=== PATIENT | female | born 1955 | race Caucasian/White ===

== ENCOUNTER → 2020-10-31 | Outpatient (CLI) | payer MEDICARE, OTHER | LOC: CARD 13:30 | PROVIDERS: ATTEND Family Medicine | DX: I08.0 Rheumatic disorders of both mitral and aortic valves (principal) | CPT/HCPCS: 93005; 93306 ==

== ENCOUNTER → 2021-02-04 | Outpatient (CLI) | payer MEDICARE, OTHER ==
[~2021-02-04] MED LIST: ASCO250T16 PO; ASPI-1238 PO; ASPIRIN 325 MG (5 GR) TABLET ONE; ATOR20TA66 PO; CALC-308 PO; CATHETER FLUSH 10 ML SYR IV PRN; CLOP75TA28 PO; CLOPIDOGREL 300 MG (PLAVIX) TABLET PO ONE; COLE625T9 PO; EPTIFIBATIDE BOLUS 10 ML IV ONE; HEParin (CATH LAB) 2,000 ML IV ONE; HEParin 1000 UNIT/ML (10ML VIAL) FOR BOLUS ONE; LIDOCAINE 1% INJ 20 ML 20 ML VIAL ONE; METO-351 PO; MIDAZOLAM 5 MG/5 ML (VERSED) VIAL ONE; NF-VITD400 PO; NITRO DRIP 25000 MCG/D5W 250 ML IV ONE; NS IV 1000 ML 1,000 ML ONE; OMEG1CAP24 PO; TRZ50T PO; VERAPAMIL 5 MG/2 ML (CALAN) VIAL IV ONE; VITA40TA PO; fentaNYL INJ 100 MCG/2 ML AMP ONE
[2021-02-04 09:00] VITALS: BP 128/66
[2021-02-04 10:56] VITALS: BP 128/66
--- NOTE | 2021-02-04 10:56 | Cardiology Stress Test Report ---
Stress Test Report Date of Procedure/Referring: Date of Procedure: Feb 04, 2021 PCP Charlie Patton MD Admitting Physician Bobbi Sanchez DO Indications: CP Baseline Heart Rate: 71 Baseline Blood Pressure: Blood Pressure Systolic: 128 Blood Pressure Diastolic: 66 Vital Signs Date Time Temp Pulse Resp B/P (MAP) Pulse Ox O2 Delivery O2 Flow Rate FiO2 02/04/21 09:00 73 14 128/66 (86) 98 Room Air Baseline Vital Signs Vital Signs Date Time Temp Pulse Resp B/P (MAP) Pulse Ox O2 Delivery O2 Flow Rate FiO2 02/04/21 09:00 73 14 128/66 (86) 98 Room Air Baseline EKG: Baseline EKG: NSR Summary: After explaining the procedure and details to the patient, she signed the consent and was brought to the stress nuclear laboratory. Patient exercised on standard Chao protocol, EKG, heart rate and blood pressure were monitored continuously, resting and stress doses of radio tracer were injected, imaging was acquired and reviewed in the short axis, horizontal long axis and vertical long axis views Patient was able to exercise for a total of 3 minutes on Chao protocol, METs 4.6 Maximum heart rate 146 Maximum blood pressure 181/85 Stress EKG, Minimal nondiagnostic changes Recovery EKG, Return to baseline TID: 1.31 SSS: 16 SDS: 14 EF: 57 Conclusion: 1. Poor exercise tolerance for 3 minutes on standard Chao protocol, 4.6 METS achieving 95% of maximum expected heart rate 2. Hypertensive response to exercise with peak blood pressure 181/85 return to baseline during recovery 3. EKG changes noted during exercise with [address] depression in lead II, III and aVF V4 and V5 persisted late in recovery 4. Exercise-induced frequent PVCs and ventricular couplets resolved in recovery 5. Reversible ischemia involving the mid to apical anterior wall and anterolateral wall and anterior septum and apex 6. Stress induced transient ischemic dilatation with TID value 1.31 7. Normal left ventricular size, EF 57% CHARLIE PATTON MD Feb 04, 2021 10:56
== END ==
LOC: CARD 08:00
PROVIDERS: ATTEND Internal Medicine Cardiovascular Disease
DX: I25.10 Atherosclerotic heart disease of native coronary artery without angina pectoris (principal); I10 Essential (primary) hypertension
CPT/HCPCS: 78452; 93017; A9502

== ENCOUNTER 2021-02-06 13:00 | Outpatient (CLI) | payer MEDICARE, OTHER ==
[~2021-02-06] VITALS: Ht 168.9 cm; Wt 62.4 kg
[2021-02-06] VITALS (12 sets, daily range): BP systolic 96–143; BP diastolic 49–93
--- NOTE | 2021-02-06 11:22 | Diagnostic Imaging Report ---
INDICATION: ABNORMAL STRESS TEST. TECHNIQUE: Single view chest 1:07 AM. CORRELATION STUDY: None FINDINGS: The heart size, mediastinal configuration and pulmonary vascularity are within normal limits. The lungs are clear with no consolidating infiltrate. There is no significant effusion or pneumothorax. Mild rightward curvature lower thoracic spine. IMPRESSION: 1. Negative for acute abnormality of the chest. Dictated by: Dictated on workstation # [id number]
[2021-02-06 11:29] LABS: HEMATOCRIT 42 % (35-52); HEMOGLOBIN 14.4 g/dL (11.5-16.0); MEAN CORPUSCULAR HEMOGLOBIN 31 pg (25-34); MEAN CORPUSCULAR HGB CONC 34 g/dL (32-36); MEAN CORPUSCULAR VOLUME 92 fL (80-99); MEAN PLATELET VOLUME 8.8 fL (9.0-12.2); PLATELET COUNT 259 10^3/uL (130-400); WHITE BLOOD COUNT 5.3 10^3/uL (4.3-11.0)
[2021-02-06 11:39] LABS: PROTHROMBIN TIME PATIENT 13.7 SEC (12.2-14.7)
[2021-02-06 11:49] LABS: ALANINE AMINOTRANSFERASE 16 U/L (0-55); ALBUMIN 4.5 GM/DL (3.2-4.5); ALKALINE PHOSPHATASE 68 U/L (40-136); BILIRUBIN,TOTAL 0.9 MG/DL (0.1-1.0); BUN/CREATININE RATIO 15; CALCIUM 9.3 MG/DL (8.5-10.1); CARBON DIOXIDE 24 MMOL/L (21-32); CHLORIDE 105 MMOL/L (98-107); CHOLESTEROL 198 MG/DL (< 200); CREATININE SERUM 0.82 MG/DL (0.60-1.30); GFR ESTIMATED > 60; GLUCOSE 92 MG/DL (70-105); HDL CHOLESTEROL 71 MG/DL (40-60); POTASSIUM 3.7 MMOL/L (3.6-5.0); SODIUM 139 MMOL/L (135-145); TOTAL PROTEIN 7.1 GM/DL (6.4-8.2); TRIGLYCERIDES 85 MG/DL (<150); VLDL CHOLESTEROL 17 MG/DL (5-40)
--- NOTE | 2021-02-06 12:48 | Conscious Sedation/ASA ---
Conscious Sedation Pre-Proced Time 12:47 ASA Score 3 For ASA 3 and 4: Consider anesthesia and medical clearance. Also, for patients with a history of failed moderate sedation consider anesthesia. Airway Lungs Heart ASA score ASA 1: a normal healthy patient ASA 2: a patient with a mild systemic disease (mid diabetes, controlled hypertension, obesity x ASA 3: a patient with a severe systemic disease that limits activity (angina, COPD, prior Myocardial infarction) ASA 4: a patient with an incapacitating disease that is a constant threat to life (CHF, renal failure) ASA 5: a moribund patient not expected to survive 24 hrs. (ruptured aneurysm) ASA 6: a declared brain- patient whose organs are being harvested. For emergent operations, add the letter E after the classification Mallampati Classification Grade 3 Sedation Plan Analgesia, Amnesia, Plan communicated to team members, Discussed options with patient/fam, Discussed risks with patient/fam The patient is an appropriate candidate to undergo the planned procedure, sedation, and anesthesia. The patient immediately re-assessed prior to indication. CHARLIE CARRENO MD Feb 06, 2021 12:48
--- NOTE | 2021-02-06 12:52 | Cardiac Cath Report ---
Cardiac Cath Report Physician (s)/Resident Surgeon (s) Physician CHARLIE CARRENO MD Pre-Procedure Diagnosis Pre-Procedure Diagnosis: Chest pain, coronary artery disease Post-Procedure Note Procedure Start Date: Feb 06, 2021 Name of Procedure: Left heart catheterization Stenting to the LAD Findings/Procedure Note PROCEDURE NOTE: 65-year-old lady with recurrent chest pain, had an abnormal stress test suggestive of ischemia in the anterior wall scheduled for cardiac catheterization. After explaining the procedure to the patient, all pros and cons were explained, all questions were answered. The patient signed the consent and then she was placed on the cardiac catheterization laboratory. Groin was prepped SL fashion local anesthesia was used. Sheath placed in the right radial artery, Jenkinjones catheter advanced to the left ventricular cavity, pressure was measured, pullback LV to aorta, intubated the right and left coronary system and angiogram was done. Patient was noted to have subtotal occlusion of the proximal LAD, given a total of 6000 units of heparin, double bolus Integrilin, EBU 3.5 guide was advanced to the left coronary system then whisper extra-support wire was advanced and parked into the distal LAD. Predilatation with 3 x 20 balloon then deployment of Angela 3 x 18 mm expanded to 3.6 mm with excellent results. At the end of the procedure the sheath was removed. Vascular band was used. FINDINGS: Hemodynamics LV 84/7, end-diastolic pressure of seven Aorta 75/41 mean of 55 ANATOMY: Left Main is free of obstructive disease Left Anterior Descending is subtotally occluded proximally, successful angioplasty and stenting using Angela 3 x 18 mm expanded to 3.5 mm with excellent results Left Circumflex is moderate to large in size with no obstructive disease Right Coronary Artery is moderate in size with no obstructive disease LV Gram was not done, pressure was measured CONCLUSION: 1. Subtotal occlusion in the proximal LAD, successful angioplasty and stenting using Angela 3 x 18 mm expanded to 3.6 mm with excellent results 2. Otherwise mild coronary artery disease nonobstructive disease 3. Patient was borderline hypotensive throughout the procedure DISCUSSION AND RECOMMENDATION: Patient was started on aspirin and Plavix, Lipitor 20 mg daily and will continue monitoring Anesthesia Type: Conscious Sedation Estimated blood loss (mL): 15 ml Contrast Amount: 86 ml Total Radiation Dose: 281 mGy Post-Procedure Diagnosis Post-operative diagnosis: Chest pain Coronary artery disease Hypertension Hyperlipidemia CHARLIE CARRENO MD Feb 06, 2021 12:52
[~2021-02-06 13:00] MED LIST changes: -ASPI-1238 PO; -ASPIRIN 325 MG (5 GR) TABLET ONE; -ATOR20TA66 PO; -CATHETER FLUSH 10 ML SYR IV PRN; -CLOP75TA28 PO; -CLOPIDOGREL 300 MG (PLAVIX) TABLET PO ONE; -EPTIFIBATIDE BOLUS 10 ML IV ONE; -HEParin (CATH LAB) 2,000 ML IV ONE; -HEParin 1000 UNIT/ML (10ML VIAL) FOR BOLUS ONE; -LIDOCAINE 1% INJ 20 ML 20 ML VIAL ONE; -MIDAZOLAM 5 MG/5 ML (VERSED) VIAL ONE; -NITRO DRIP 25000 MCG/D5W 250 ML IV ONE; +NS IV 1000 ML 1,000 ML IV SCH; -NS IV 1000 ML 1,000 ML ONE; -VERAPAMIL 5 MG/2 ML (CALAN) VIAL IV ONE; -fentaNYL INJ 100 MCG/2 ML AMP ONE
[2021-02-06] MEDS: NS IV 1000 ML 1,000 ML IV SCH ×2 (13:23→14:55)
[2021-02-06] MEDS ORDERED: CATHETER FLUSH 10 ML SYR IV PRN (15:30)
[2021-02-07] VITALS: BP 107/64
[2021-02-07 03:57] VITALS: BP 99/62
[2021-02-07] MEDS ORDERED: CLOP75TA28 PO (06:46)
[2021-02-07] MEDS ORDERED: ATOR20TA66 PO (06:46)
[2021-02-07] MEDS ORDERED: ASPI-1238 PO (06:46)
--- NOTE | 2021-02-07 06:47 | Discharge Inst-Post CATH ---
Discharge Inst-CATH/EP Problems Reviewed?: Yes Post Cardiac Cath/EP D/C Inst Follow Up/Plan Appointment with Dr Patton in 2-4 weeks <b>CARDIAC CATH/EP PROCEDURE DISCHARGE INSTRUCTIONS</b> ACTIVITY * Go Home directly and rest. * Limit activity of the leg (or wrist if it was used) for 7 days including aerobics, swimming, jogging, bicycling, etc. * Restrict stair-climbing for 7 days if possible, if not, climb up with your non-cath leg, then bring together on the same step. * Avoid lifting, pushing, pulling or excessive movement of the affected extremity for 7 days. * Customary sexual activity may be resumed after 2 days-use caution not to use a position that strains or causes pain to the affected extremity. * No driving for 24 hours. * NO SMOKING. * Avoid straining for bowel movements for 7 days. * Gentle walking on level ground is allowed. * Returning to work will depend on the type of procedure and the results. Your doctor will discuss this with you. CALL YOUR DOCTOR FOR ANY OF THE FOLLOWING: *If bleeding from the puncture site occurs- Apply gentle pressure to site with clean cloth and call your doctor or EMS. * If a knot or lump forms under the skin, increases in size, or causes pain. * If bruising appears to be worsening or moving further down your leg instead of disappearing. * Temperature above 101 F. CARE OF YOUR GROIN INCISION; * Bruising or purple discoloration of the skin near the puncture site is common. * You may shower only, no bathtub bathing for 5 days. Be careful to avoid slipping as your leg may feel stiff. * If a closure device was used on your femoral artery, please see the attached guide regarding care of the device and your leg. * Leave dressing on FOR 24 hours. CARE OF YOUR WRIST INCISION; * Bruising or purple discoloration of the skin near the puncture site is common. * You may shower. * DO NOT submerge wrist. * Leave dressing on FOR 24 hours. CHARLIE PATTON MD Feb 07, 2021 06:47
[2021-02-07 07:50] VITALS: BP 102/51
[2021-02-07] MEDS: NS IV 1000 ML 1,000 ML IV SCH (08:02)
[2021-02-07] MEDS ORDERED: CLOPIDOGREL 75 MG (PLAVIX) TABLET PO SCH (09:00)
[2021-02-07] MEDS ORDERED: ASPIRIN E.C. 81 MG (ECOTRIN) TAB PO SCH (09:00)
--- NOTE | 2021-02-07 09:48 | Cardiology Progress Note ---
Subjective Date Seen by Provider: Feb 07, 2021 Time Seen by Provider: 09:46 Subjective/Events-last exam Patient was seen and evaluated, has been doing well. No new complaint Review of Systems General: No Chills, No Night Sweats, No Fatigue, No Malaise, No Appetite, No Other HEENT: No Head Aches, No Visual Changes, No Eye Pain, No Ear Pain, No Dysphasia, No Sinus Congestion, No Post Nasal Drip, No Sore Throat, No Other Pulmonary: No Dyspnea, No Cough, No Pleuritic Chest Pain, No Other Cardiovascular: No: Chest Pain, Palpitations, Orthopnea, Paroxysmal Noc. Dyspnea, Edema, Lt Headedness, Other Objective-Cardiology Exam Last Set of Vital Signs Vital Signs 02/07/21 02/07/21 07:50 08:03 Temp 37.0 Pulse 56 Resp 18 B/P (MAP) 102/51 (68) Pulse Ox 94 O2 Delivery Room Air General: Alert, Oriented X3, Cooperative HEENT: Atraumatic, PERRLA Neck: Supple, No JVD, No Thyromegaly Lungs: Clear to Auscultation, Normal Air Movement Heart: Regular Rate, Normal S1, Normal S2, No Murmurs Abdomen: Normal Bowel Sounds, Soft, No Tenderness, No Hepatosplenomegaly, No Masses Extremities: No Clubbing, No Cyanosis, No Edema, Normal Pulses, No Tenderness/Swelling Skin: No Rashes, No Breakdown, No Significant Lesion Neuro: Normal Gait, Normal Speech, Strength at 5/5 X4 Ext, Normal Tone, Sensation Intact Psych/Mental Status: Mental Status NL, Mood NL Results Lab Laboratory Tests 02/06/21 11:07 A/P-Cardiology Admission Diagnosis Coronary artery disease Hypertension Hyperlipidemia Assessment/Plan Coronary artery disease, status post intervention as described below. 1. Subtotal occlusion in the proximal LAD, successful angioplasty and stenting using Angela 3 x 18 mm expanded to 3.6 mm with excellent results 2. Otherwise mild coronary artery disease nonobstructive disease 3. Patient was borderline hypotensive throughout the procedure Hypertension, monitor blood pressure, continue current medication Hyperlipidemia, started on statin. We discussed the management plan, educated about compliance with medication especially aspirin Plavix, arrange for follow-up as an outpatient CHARLIE CARRENO MD Feb 07, 2021 09:48
== END 2021-02-07 10:29 | disposition home or self-care (01) ==
LOC: CATH 13:00 → CSD 13:05 → CATH 02-07 10:29
PROVIDERS: ATTEND Internal Medicine Cardiovascular Disease
DX: R94.39 Abnormal result of other cardiovascular function study (principal); R07.9 Chest pain, unspecified
CPT/HCPCS: 36415; 71045; 80053; 80061; 85027; 85610; 85730; 87081; 93458

== ENCOUNTER → 2021-03-13 | Outpatient (CLI) | payer MEDICARE, OTHER ==
[~2021-03-13] VITALS: Ht 167 cm; Wt 61.0 kg
[~2021-03-13] MED LIST changes: +ASPI-1238 PO; +ATOR20TA66 PO; +CATHETER FLUSH 10 ML SYR IV PRN; +CLOP75TA28 PO; -NS IV 1000 ML 1,000 ML IV SCH
[2021-03-13 10:01] VITALS: BP 138/72
--- NOTE | 2021-03-13 12:08 | Cardiology Stress Test Report ---
Stress Test Report Date of Procedure/Referring: Date of Procedure: Mar 13, 2021 Anusha Rodriguez Admitting Physician Bobbi Sanchez DO Indications: CAD Baseline Heart Rate: 69 Baseline Blood Pressure: Blood Pressure Systolic: 138 Blood Pressure Diastolic: 72 Vital Signs Date Time Temp Pulse Resp B/P (MAP) Pulse Ox O2 Delivery O2 Flow Rate FiO2 03/13/21 10:01 69 16 138/72 (94) 98 Room Air Baseline Vital Signs Vital Signs Date Time Temp Pulse Resp B/P (MAP) Pulse Ox O2 Delivery O2 Flow Rate FiO2 03/13/21 10:01 69 16 138/72 (94) 98 Room Air Baseline EKG: Baseline EKG: NSR Summary: After explaining the procedure and details to the patient, she signed the consent and was brought to the stress nuclear laboratory. Patient exercised on standard Chao protocol, EKG, heart rate and blood pressure were monitored continuously, resting and stress doses of radio tracer were injected, imaging was acquired and reviewed in the short axis, horizontal long axis and vertical long axis views Patient was able to exercise for a total of 4 minutes on Chao protocol, METs 5.8 Maximum heart rate 135 Maximum blood pressure 214/73 Stress EKG, Minimal nondiagnostic changes Recovery EKG, Return to baseline TID: 1.09 SSS: 0 SDS: 0 EF: 72 Conclusion: 1. Fair exercise tolerance for a total of 4 minutes on standard Chao protocol, 5.8 METS achieving 88% of maximal expected heart rate 2. Appropriate heart rate response to exercise with hypertensive response to exercise return to baseline during recovery 3. Minimal nondiagnostic EKG changes with exercise return to baseline during r ecovery 4. No significant ischemia or infarction on SPECT images 5. Normal left ventricular size, EF 72% CHARLIE CARRENO MD Mar 13, 2021 12:07
== END ==
LOC: CARD 08:45
PROVIDERS: ATTEND Physician Assistant
DX: I25.10 Atherosclerotic heart disease of native coronary artery without angina pectoris (principal)
CPT/HCPCS: 78452; 93017; A9502

== ENCOUNTER → 2022-02-28 | Outpatient (CLI) | payer MEDICARE, OTHER ==
[~2022-02-28] MED LIST changes: -CATHETER FLUSH 10 ML SYR IV PRN
== END ==
LOC: CARD 09:26
PROVIDERS: ATTEND Internal Medicine Cardiovascular Disease
DX: I35.8 Other nonrheumatic aortic valve disorders (principal); I10 Essential (primary) hypertension; I25.10 Atherosclerotic heart disease of native coronary artery without angina pectoris
CPT/HCPCS: 93306

== ENCOUNTER 2022-08-13 05:42 | Outpatient (CLI) | payer MEDICARE ==
[~2022-08-13] VITALS: Ht 167.6 cm; Wt 56.7 kg
[~2022-08-13 05:42] MED LIST changes: +COLE625T30 PO; -COLE625T9 PO
[2022-08-13] MEDS ORDERED: CHOL200074 PO (10:16)
== END 2022-08-13 10:18 | disposition home or self-care (01) ==
LOC: PREOP 05:42
PROVIDERS: ATTEND Internal Medicine
DX: Z01.818 Encounter for other preprocedural examination (principal)

== ENCOUNTER 2022-08-22 08:31 | Day surgery (SDC) | payer MEDICARE, OTHER ==
--- NOTE | 2022-08-12 06:47 | HISTORY AND PHYSICAL ---
DATE OF SERVICE: 08/22/2022 COLONOSCOPY SUMMARY HISTORY OF PRESENT ILLNESS: This is a 66-year-old white female referred by Dr. Sanchez for screening colonoscopy. She reports one another colonoscopy roughly 15 years ago. She came in with a report, which revealed some diverticular disease with no evidence for neoplasia. It was done for diarrhea issues at that time. She reports longstanding bowel habit of going at least 6 times, all in the morning. She has no nocturnal stool, rarely will have small volume bright red blood per rectum that she attributes to hemorrhoids. This has not been getting worse. She rarely has abdominal bloating and cramping associated. PAST MEDICAL HISTORY: Significant for coronary artery disease, single vessel. She had stent placement in the summer of 2020, no problems since. She has a history of hyperlipidemia for which she takes atorvastatin 20 mg daily and is on aspirin and Plavix. PAST SURGICAL HISTORY: She has had laparoscopic hernia repair and tubal ligation in 1987. FAMILY HISTORY: She is not aware of any family history for colon cancer, GI tract malignancy or ulcerative colitis. Her daughter has had several colon polyps removed. SOCIAL HISTORY: She is . Three adult children. No past smoking history, one to two drinks per week in regards to alcohol. REVIEW OF SYSTEMS: CONSTITUTIONAL: Denies night sweats, chills, fever or change in weight. PULMONARY: Denies cough, wheezing or shortness of breath. CARDIOVASCULAR: Denies orthopnea, PND, pedal edema, chest discomfort, or syncope. GASTROINTESTINAL: As noted in the HPI. PHYSICAL EXAMINATION: GENERAL: Reveals a pleasant, overweight white female in no acute distress. VITAL SIGNS: Weight 125 pounds, blood pressure 110/70. HEENT: Unremarkable. Sclerae nonicteric. No evidence for pallor. CHEST: Clear to auscultation. CARDIOVASCULAR: Reveals a regular rate and rhythm without murmur, S3, or S4. ABDOMEN: Soft, supple without mass, organomegaly, or tenderness. No bruits noted. EXTREMITIES: Revealed no cyanosis, clubbing or edema. ASSESSMENT AND PLAN: The patient is being set up for screening colonoscopy with what sounds likely IBS-D. Prep instructions were given and questions were answered. Thank you for referral of this pleasant lady. Job ID: [id number] DocumentID: [id number] Dictated Date: 08/07/2022 15:46:05 Concrete Curer Date: 08/07/2022 16:02:00 Dictated By: PHILIP WINKLER MD
[~2022-08-22] VITALS: Ht 167.6 cm; Wt 56.7 kg
[~2022-08-22 08:31] MED LIST changes: +CHOL200074 PO
[2022-08-22] MEDS ORDERED: LACTATED RINGERS 1,000 ML IV STA (08:37)
[2022-08-22 08:58] VITALS: BP 108/45
--- NOTE | 2022-08-22 09:18 | Pre-Op Note & Conscious Sedat ---
Pre-Operative Progress Note Date H&P Reviewed: Aug 22, 2022 Time H&P Reviewed: 09:15 History & Physical: H&P Reviewed, Patient Examed, No changes noted Pre-Op Diagnosis: screening Conscious Sedation Pre-Proced ASA Score 2 For ASA 3 and 4: Consider anesthesia and medical clearance. Also, for patients with a history of failed moderate sedation consider anesthesia. Airway Lungs Heart ASA score ASA 1: a normal healthy patient ASA 2: a patient with a mild systemic disease (mid diabetes, controlled hypertension, obesity ASA 3: a patient with a severe systemic disease that limits activity (angina, COPD, prior Myocardial infarction) ASA 4: a patient with an incapacitating disease that is a constant threat to life (CHF, renal failure) ASA 5: a moribund patient not expected to survive 24 hrs. (ruptured aneurysm) ASA 6: a declared brain- patient whose organs are being harvested. For emergent operations, add the letter E after the classification Mallampati Classification Grade 1 Sedation Plan Analgesia, Amnesia, Plan communicated to team members, Discussed options with patient/fam, Discussed risks with patient/fam The patient is an appropriate candidate to undergo the planned procedure, sedation, and anesthesia. The patient immediately re-assessed prior to indication. PHILIP WINKLER MD Aug 22, 2022 09:18
[2022-08-22] MEDS ORDERED: proPOfol 200 MG/20 ML (DIPRIVAN) VIAL IV ONE (09:20)
[2022-08-22 10:02] VITALS: BP 93/52
--- NOTE | 2022-08-22 10:02 | Progress Note-Post Operative ---
Post-Procedure Note Physician (s)/Senior Bioinformatics Scientist (s) Physician PHILIP WINKLER MD Pre-Procedure Diagnosis Pre-Procedure Diagnosis: screening Post-Procedure Diagnosis Post-operative diagnosis: Prior to undergoing colonoscopy digital rectal evaluation was performed. Anal central tone was normal and the perianal reflexes intact. No abnormalities noted on digital inspection of the anal canal or distal rectal vault. The colonoscope was inserted into the rectum and under direct visualization advanced to the cecum. The cecum was identified by identification of the ileocecal valve and the of the cecal strap. Photographic documentation was obtained. A careful inspection was made as the colonoscope was withdrawn. Quality prep was fair. Findings: There were no evidence for internal or external hemorrhoids and the rectum was unremarkable. Because of reports of diarrhea biopsy from the rectum was obtained and submitted for evaluation for microscopic colitis. Moderate to severe diverticular disease with haustral hypertrophy was noted throughout the sigmoid and descending colon without evidence for diverticulitis. No other sigmoid or descending colonic abnormalities are appreciated. The splenic flexure transverse colon hepatic flexure ascending colon and cecum were unremarkable. Assessment: Moderate to severe diverticular disease noted in the sigmoid and descending colon was present without evidence for diverticulitis. This was an otherwise normal colonoscopy to the cecum. Considering this is patient's second colonoscopy without neoplasia and underlying moderate to severe diverticular disease with no family history for colon cancer would not advocate future screening colonoscopy. CC: PHILIP Crenshaw MD Aug 22, 2022 10:02
--- NOTE | 2022-08-22 10:06 | Anesthesia-General Post-Op ---
MAC Patient Condition Mental Status/LOC: Same as Preop Cardiovascular: Satisfactory Nausea/Vomiting: Absent Respiratory: Satisfactory Pain: Controlled Complications: Absent Post Op Complications Complications None Follow Up Care/Instructions Patient Instructions None needed. Anesthesiology Discharge Order Discharge Order Patient is doing well, no complaints, stable vital signs, no apparent adverse anesthesia problems. No complications reported per nursing. ARETHA FISCHER DO Aug 22, 2022 10:06
[2022-08-22 10:07] VITALS: BP 99/51
[2022-08-22 10:10] VITALS: BP 106/58
== END 2022-08-22 10:51 | disposition home or self-care (01) ==
LOC: ENDO 08:31
PROVIDERS: ATTEND Internal Medicine
DX: K57.30 Diverticulosis of large intestine without perforation or abscess without bleeding (principal)
CPT/HCPCS: 88305

== ENCOUNTER → 2022-10-13 | Outpatient (CLI) | payer MEDICARE, OTHER ==
[~2022-10-13] MED LIST changes: +NORMAL SALINE 250 ML ONE; +NS (IVPB) 250 ML ONE; +NS IV 500 ML 500 ML IV SCH; +REGADENOSON 0.4 MG/5 ML SYR (LEXISCAN) IV ONE
[2022-10-13] MEDS: CATHETER FLUSH 10 ML SYR IVP PRN ×2 (08:08→09:38)
[2022-10-13 09:23] VITALS: BP 120/57
--- NOTE | 2022-10-13 10:57 | Cardiology Stress Test Report ---
Stress Test Report Date of Procedure/Referring: Date of Procedure: Oct 13, 2022 PCP Bobbi Sanchez DO Admitting Physician Admitting Physician: Attending Physician: Anusha Gay Indications: CAD Baseline Heart Rate: 65 Baseline Blood Pressure: Blood Pressure Systolic: 120 Blood Pressure Diastolic: 57 Baseline Vitals Vital Signs Date Time Temp Pulse Resp B/P (MAP) Pulse Ox O2 Delivery O2 Flow Rate FiO2 10/13/22 09:23 62 16 120/57 (78) 97 Room Air Baseline EKG: Baseline EKG: NSR Summary After explaining the procedure to the patient, she signed a consent and then b rought to the stress nuclear laboratory. Patient received 0.4 mg Lexiscan for stress test, ECG, heart rate and blood pressure were monitored continuously. Resting and stress dose of radio tracer were injected, imaging was acquired and reviewed in short axis, horizontal long axis and vertical long axis views. TID: 1.22 SSS: 1 SDS: 1 EF: 65 Patient tolerated Lexiscan well Mild reversible ischemia involving the mid to apical anterior wall Transient ischemic dilatation 1.22 Normal left ventricular size, ejection fraction 65% Copy Copies To 1: BOBBI SANCHEZ BASHAR J MD Oct 13, 2022 10:57
== END ==
LOC: CARD 07:49
PROVIDERS: ATTEND Physician Assistant
DX: I25.10 Atherosclerotic heart disease of native coronary artery without angina pectoris (principal)
CPT/HCPCS: 78452; 93017; A9502

== ENCOUNTER 2022-10-22 09:00 | Day surgery (SDC) | payer MEDICARE, OTHER ==
[2022-10-22] VITALS (8 sets, daily range): BP systolic 88–110; BP diastolic 43–63
[~2022-10-22] VITALS: Ht 168.9 cm; Wt 56.7 kg
[2022-10-22 07:40] LABS: HEMATOCRIT 41 % (35-52); HEMOGLOBIN 14.3 g/dL (11.5-16.0); MEAN CORPUSCULAR HEMOGLOBIN 32 pg (25-34); MEAN CORPUSCULAR HGB CONC 35 g/dL (32-36); MEAN CORPUSCULAR VOLUME 92 fL (80-99); MEAN PLATELET VOLUME 9.1 fL (9.0-12.2); PLATELET COUNT 221 10^3/uL (130-400)
--- NOTE | 2022-10-22 07:49 | Diagnostic Imaging Report ---
Clinical indications: Patient with chest pain. Precatheterization chest x-ray. EXAM: Portable chest x-ray upright view. COMPARISON: Chest x-ray dated 02/06/2021. FINDINGS: Lungs/pleura: Lungs are clear. There is no pneumothorax. There is no pleural effusion. Mediastinum: Unremarkable. Pulmonary vasculature: Unremarkable. Heart: Unremarkable. Bones/extrathoracic soft tissue: There is left curvature of the thoracolumbar spine region. There are small degenerative spurs involving the thoracic spine.. IMPRESSION: There is no radiographic evidence of acute cardiopulmonary process. Dictated by: Dictated on workstation # [id number]
[2022-10-22 07:55] LABS: PROTHROMBIN TIME PATIENT 14.2 SEC (12.2-14.7)
[2022-10-22 08:00] LABS: ALBUMIN 4.2 GM/DL (3.2-4.5); BILIRUBIN,TOTAL 0.9 MG/DL (0.1-1.0); CALCIUM 9.3 MG/DL (8.5-10.1); CREATININE SERUM 0.76 MG/DL (0.60-1.30); POTASSIUM 3.7 MMOL/L (3.6-5.0); TOTAL PROTEIN 6.5 GM/DL (6.4-8.2)
[~2022-10-22 09:00] MED LIST changes: +ACET325T38 PO; +ASCO-262 PO; +CALC-250 PO; +CALC-823 PO; +HEParin (CATH LAB) 2,000 ML IV ONE; +LEVO5TAB28 PO; +LIDOCAINE 1% INJ 20 ML VIAL ONE; +MTP25TSR PO; -NORMAL SALINE 250 ML ONE; -NS (IVPB) 250 ML ONE; +NS IV 1000 ML 0 ML ONE; +NS IV 1000 ML 1,000 ML IV SCH; -NS IV 500 ML 500 ML IV SCH; +OMEG100032 PO; -REGADENOSON 0.4 MG/5 ML SYR (LEXISCAN) IV ONE; +TRAZ-227 PO
[2022-10-22] MEDS ORDERED: fentaNYL INJ 100 MCG/2 ML AMP ONE (09:11)
[2022-10-22] MEDS ORDERED: MIDAZOLAM 5 MG/5 ML (VERSED) VIAL ONE (09:11)
[2022-10-22] MEDS ORDERED: HEParin 1000 UNIT/ML (10ML VIAL) FOR BOLUS ONE (09:11)
[2022-10-22] MEDS ORDERED: VERAPAMIL 5 MG/2 ML (CALAN) VIAL IV ONE (09:11)
[2022-10-22] MEDS ORDERED: NITRO DRIP 25000 MCG/D5W 250 ML IV ONE (09:12)
[2022-10-22] MEDS ORDERED: NS IV 1000 ML 1,000 ML ONE (09:12)
--- NOTE | 2022-10-22 09:22 | Cardiac Procedure Note-CS/ASA ---
Pre-Procedure Note Pre-Op Procedure Note Date of Available H&P: Oct 14, 2022 Date H&P Reviewed: Oct 22, 2022 Time H&P Reviewed: 09:00 History & Physical: H&P Reviewed, Patient Examed, No changes noted Pre-Operative Diagnosis: CAD Moderate Sedation PreProcedure Time 09:00 ASA Score 3 Airway Lungs Heart ASA score ASA 1: a normal healthy patient ASA 2: a patient with a mild systemic disease (mid diabetes, controlled hypertension, obesity ASA 3: a patient with a severe systemic disease that limits activity (angina, COPD, prior Myocardial infarction) ASA 4: a patient with an incapacitating disease that is a constant threat to life (CHF, renal failure) ASA 5: a moribund patient not expected to survive 24 hrs. (ruptured aneurysm) ASA 6: a declared brain- patient whose organs are being harvested. For emergent operations, add the letter E after the classification Mallampati Classification Grade 3 Sedation Plan Analgesia, Amnesia, Plan communicated to team members, Discussed options with patient/fam, Discussed risks with patient/fam The patient is an appropriate candidate to undergo the planned procedure, sedation, and anesthesia. The patient immediately re-assessed prior to indication. CHARLIE CARRENO MD Oct 22, 2022 09:22
--- NOTE | 2022-10-22 09:48 | Discharge Inst-Post CATH ---
Discharge Inst-CATH/EP Problems Reviewed?: Yes Post Cardiac Cath/EP D/C Inst Follow Up/Plan Appointment with Dr. Patton's office in 4 weeks <b>CARDIAC CATH/EP PROCEDURE DISCHARGE INSTRUCTIONS</b> ACTIVITY * Go Home directly and rest. * Limit activity of the leg (or wrist if it was used) for 7 days including aerobics, swimming, jogging, bicycling, etc. * Restrict stair-climbing for 7 days if possible, if not, climb up with your non-cath leg, then bring together on the same step. * Avoid lifting, pushing, pulling or excessive movement of the affected extremity for 7 days. * Customary sexual activity may be resumed after 2 days-use caution not to use a position that strains or causes pain to the affected extremity. * No driving for 24 hours. * NO SMOKING. * Avoid straining for bowel movements for 7 days. * Gentle walking on level ground is allowed. * Returning to work will depend on the type of procedure and the results. Your doctor will discuss this with you. CALL YOUR DOCTOR FOR ANY OF THE FOLLOWING: *If bleeding from the puncture site occurs- Apply gentle pressure to site with clean cloth and call your doctor or EMS. * If a knot or lump forms under the skin, increases in size, or causes pain. * If bruising appears to be worsening or moving further down your leg instead of disappearing. * Temperature above 101 F. CARE OF YOUR GROIN INCISION; * Bruising or purple discoloration of the skin near the puncture site is common. * You may shower only, no bathtub bathing for 5 days. Be careful to avoid slipping as your leg may feel stiff. * If a closure device was used on your femoral artery, please see the attached guide regarding care of the device and your leg. * Leave dressing on FOR 24 hours. CARE OF YOUR WRIST INCISION; * Bruising or purple discoloration of the skin near the puncture site is common. * You may shower. * DO NOT submerge wrist. * Leave dressing on FOR 24 hours. CHARLIE PATTON MD Oct 22, 2022 09:47
--- NOTE | 2022-10-22 09:50 | Cardiac Cath Report ---
Cardiac Cath Report Physician (s)/[employer] (s) Physician CHARLIE CARRENO MD Pre-Procedure Diagnosis Pre-Procedure Diagnosis: CAD Post-Procedure Note Procedure Start Date: Oct 22, 2022 Name of Procedure: Coronary angiogram Findings/Procedure Note PROCEDURE NOTE: 67-year-old lady with history of coronary artery disease, stent to the proximal LAD, has an abnormal stress test, scheduled for cardiac catheterization possible PTCA. After explaining the procedure to the patient, all pros and cons were explained, all questions were answered. The patient signed the consent and then she was placed in the cardiac catheterization laboratory. Groin was prepped in SL fashion local anesthesia was used. Sheath placed in the right radial artery, [place] catheter was advanced, did not cross the aortic valve, engage the right and left coronary system. Angiogram was done. At the end of the procedure the sheath was removed. Vascular band was used FINDINGS: Hemodynamics LV did not cross the aortic valve Aorta 71/39 mean of 48 ANATOMY: Left Main is free of obstructive disease Left Anterior Descending has ostial/proximal patent stent with no obstructive disease distally Left Circumflex has no obstructive disease Right Coronary Artery is dominant artery with no obstructive disease CONCLUSION: Patent stent in the proximal/ostial LAD otherwise no obstructive disease in the coronary system DISCUSSION AND RECOMMENDATION: Abnormal stress test is probably due to small vessel disease, medical therapy is recommended Anesthesia Type: Conscious Sedation Estimated blood loss (mL): 10 ml Contrast Amount: 19 ml Total Radiation Dose: 47 mGy Post-Procedure Diagnosis Post-operative diagnosis: Chest pain Coronary artery disease Hypertension Hyperlipidemia CHARLIE CARRENO MD Oct 22, 2022 09:50
[2022-10-22] MEDS ORDERED: NS IV 1000 ML 1,000 ML IV SCH (10:00)
== END 2022-10-22 12:41 | disposition home or self-care (01) ==
LOC: CATH 09:00 → SDC 10:01 → CATH 12:41
PROVIDERS: ATTEND Internal Medicine Cardiovascular Disease
DX: I25.10 Atherosclerotic heart disease of native coronary artery without angina pectoris (principal); I10 Essential (primary) hypertension; E78.2 Mixed hyperlipidemia; I35.0 Nonrheumatic aortic (valve) stenosis; I27.20 Pulmonary hypertension, unspecified; I65.29 Occlusion and stenosis of unspecified carotid artery; Z95.5 Presence of coronary angioplasty implant and graft; Z79.01 Long term (current) use of anticoagulants; Z79.82 Long term (current) use of aspirin
CPT/HCPCS: 71045; 80053; 80061; 85027; 85610; 85730; 87081; 93005; 93458; C1894; 36415